=== PATIENT | female | born 1955 | race African-American/Black ===

== ENCOUNTER 2016-11-05 18:10 | Emergency (ER) | payer OTHER ==
[~2016-11-05] VITALS: Ht 170.2 cm; Wt 98.9 kg
[~2016-11-05 18:10] MED LIST: AMLO10TA4 PO; ASPI-482 PO; CALC-104 PO; CARV25TA PO; CARV6.25 PO; CLON0.1T PO; HYDR25CA PO; ISOS30TA PO; LIPITOR80 MG PO; MECL25TA3 PO; MELO-150 PO; NITR0.4T SL; OMEP40CA5 PO; ONDA4TAB10 PO; TRAM50TA PO; VALS1TAB22 PO
--- NOTE | 2016-11-05 18:27 | PHYS DOC ---
General Chief Complaint: BACK PAIN OR INJURY Stated Complaint: BACK PAIN Time Seen by MD: 18:04 Source: patient Exam Limitations: no limitations Problems: History of Present Illness Initial Comments Patient is a pleasant 60-year-old female with a history of heart disease, hypertension and diabetes presents with lower back pain that began while rolling in bed 4 days ago. She describes the pain as crampy and achy on her right and left lower back with radiation to the lateral legs. There is no numbness and tingling, there is no bowel or bladder incontinence, there is no rectal anesthesia, she has no weakness in her lower extremity's. She denies any prior trauma, night sweats weight loss is unintentional. She denies any urinary symptoms to include hematuria, dysuria urgency or frequency. She denies any fevers or travels outside of the country. The pain will improve with Motrin and rest. It is worsened by certain positions bending over or twisting. Timing/Duration: getting worse, other (4 days ago) Severity/Quality: severe Location: lumbar spine Radiation: buttocks Method of Injury: twisted Modifying Factors: worse with jarring, worse with movement, improves with pain medication Associated Symptoms: muscle spasms Allergies: Coded Allergies: Sulfa (Sulfonamide Antibiotics) (Verified Allergy, Severe, Hives, 04/21/15 ) alcohol (Verified Allergy, Intermediate, 10/08/15) isopropyl alcohol fish derived (Unverified Allergy, Intermediate, rash, 06/21/14) iodine (Verified Allergy, Intermediate, 10/08/15) latex (Unverified Allergy, Intermediate, rash, 06/21/14) Past Medical History Medical History: diabetes, hypertension Surgical History: other (hysterectomy, cholecystectomy, appendectomy, tonsillectomy,) Family History Significant Family History: no pertinent family hx Social History Smoker: non-smoker Alcohol: none Drugs: none Review of Systems Constitutional: no symptoms reported EENTM: no symptoms reported Respiratory: no symptoms reported Cardiovascular: no symptoms reported Gastrointestinal: no symptoms reported Genitourinary: no symptoms reported Musculoskeletal: no symptoms reported Skin: no symptoms reported Psychiatric/Neurological: no symptoms reported All Other Systems: Reviewed and Negative Physical Exam General Appearance: moderate distress HEENT: PERRL/EOMI Neck: non-tender, full range of motion Cardiovascular/Respiratory: regular rate, rhythm, no M/R/G, normal peripheral pulses Gastrointestinal: normal bowel sounds Back: normal inspection, decreased range of motion, muscle spasm Extremities: no evidence of injury, normal range of motion, non-tender, no pedal edema, pelvis stable Neurologic/Psychiatric: no motor/sensory deficits, alert, normal mood/affect, oriented x 3 Skin: normal color, warm/dry Orders, Labs, Meds Patient with a history of an physical exam consistent with muscular skeletal lower back pain. She does have risk factors for AAA to include diabetes, hypertension and coronary artery disease. She is not presenting as cauda equina , or fracture, or UTI, or metastatic disease, or infections secondary to IV drug abuse.. Patient will have a UA completed to ensure that this is not a urinary source of infection if there is any rbc lood cells in the urine will consider kidney stone. She will also be given supportive medications and reevaluated. Neuro exam was unremarkable including normal strength +2 DTRs and lower external is bilaterally at the knees and hip flexion. Patient has normal sensation to light touch and appropriate; judgment is well. Patient feels markedly better times now 7:15 PM after medications were given IM we reviewed urinalysis as well as a fingerstick glucose which were all within normal limits. Patient is comfortable with follow-up with her primary care doctor. She was prescribed muscle relaxant Valium, Lortab for breakthrough pain and Motrin. She's been discharged with follow-up with her primary care doctor MC POOL MD Nov 05, 2016 18:27
[2016-11-05] MEDS ORDERED: IBUP200T43 PO (18:43)
[2016-11-05] MEDS ORDERED: DIAZ5TAB PO (18:43)
[2016-11-05] MEDS ORDERED: HYDR-2678 PO (18:43)
[2016-11-05] MEDS ORDERED: DIAZEPAM 10 MG/2 ML DISP.SYRIN. IM ONE (18:45)
[2016-11-05] MEDS ORDERED: KETOROLAC 60 MG/2 ML VIAL. IM ONE (18:45)
[2016-11-05] MEDS ORDERED: HYDROMORPHONE PF 1 MG/ML DISP.SYRIN. IM ONE (18:45)
[2016-11-05 19:07] LABS: COLOR,URINE YELLOW
[2016-11-05 19:08] LABS: BACTERIA,URINE 0 /HPF (0-FEW); BILIRUBIN,URINE NEG (NEG); CLARITY,URINE CLEAR; GLUCOSE,URINE NEG (NEG); NITRITE,URINE NEG (NEG); RBC,URINE 0 /HPF (0-2); SQUAMOUS EPITHELIAL CELL,UR FEW /LPF; UROBILINOGEN,URINE 0.2 mg/dL (0.2 mg/dL); WBC,URINE OCC /HPF (0-4)
[2016-11-05 19:33] VITALS: BP 151/70
== END 2016-11-05 19:21 | disposition home or self-care (01) ==
LOC: ER 18:10
DX: M54.5 Low back pain (principal); E11.9 Type 2 diabetes mellitus without complications; I10 Essential (primary) hypertension; Z88.2 Allergy status to sulfonamides; Z88.8 Allergy status to other drugs, medicaments and biological substances; Z91.041 Radiographic dye allergy status; Z91.040 Latex allergy status; Z91.013 Allergy to seafood
CPT/HCPCS: 81001; 82947; 96372; 99284; J1170; J1885

== ENCOUNTER → 2016-12-09 | Outpatient (CLI) | payer OTHER ==
[~2016-12-09] MED LIST changes: +DIAZ5TAB PO; +HYDR-2678 PO; +IBUP200T43 PO; -MELO-150 PO; +MELO15TA23 PO
[2016-12-09 13:32] LABS: ALBUMIN 3.5 g/dL (3.4-5.0); CALCIUM 8.8 mg/dL (8.5-10.1); CREATININE 0.6 mg/dL (0.6-1.0); GFR 124.2; POTASSIUM 3.7 mmol/L (3.5-5.1); TOTAL BILIRUBIN 0.4 mg/dL (0.2-1.0)
[2016-12-10 13:59] LABS: THYROID STIM HORMONE (TSH) 1.188 uIU/mL (0.358-3.740)
== END | disposition home or self-care (01) ==
LOC: LAB 12:48
PROVIDERS: ATTEND Nurse Practitioner
DX: E78.5 Hyperlipidemia, unspecified (principal)
CPT/HCPCS: 36415; 80053; 80061; 84443

== ENCOUNTER 2017-04-02 20:21 | Emergency (ER) | payer OTHER ==
[~2017-04-02] VITALS: Ht 162.6 cm; Wt 99.3 kg
[2017-04-02] MEDS ORDERED: DICL100G18 TP (21:30)
--- NOTE | 2017-04-02 21:30 | PHYS DOC ---
Past History Past Medical History: Alcoholism, GERD, High Cholesterol, Hypertension, TIA Past Surgical History: Appendectomy, Cholecystectomy, Hysterectomy, Tonsillectomy Alcohol Use: Sober Drug Use: None Adult General Chief Complaint Chief Complaint: ANKLE PROBLEM HPI HPI Patient is a 61 year old F who presents with dull R ankle pain over the past 2 days. She does not recall having an injury. Her pain is worse with palpation and movement. Her pain is improved with rest and positioning. Her pain is primarily over the right lateral ankle and not radiating. He has no other associated symptoms Review of Systems Review of Systems Constitutional: Denies fever or chills [] Eyes: Denies change in visual acuity, redness, or eye pain [] HENT: Denies nasal congestion or sore throat [] Respiratory: Denies cough or shortness of breath [] Cardiovascular: No additional information not addressed in HPI [] GI: Denies abdominal pain, nausea, vomiting, bloody stools or diarrhea [] : Denies dysuria or hematuria [] Musculoskeletal: Negative except history of present illness Integument: Denies rash or skin lesions [] Neurologic: Denies headache, focal weakness or sensory changes [] Endocrine: Denies polyuria or polydipsia [] Family History Family History Noncontributory Current Medications Current Medications Medications reviewed Allergies Allergies Allergies Coded Allergies Type Severity Reaction Last Updated Verified Sulfa (Sulfonamide Antibiotics) Allergy Severe Hives 04/21/15 Yes alcohol Allergy Intermediate 10/08/15 Yes fish derived Allergy Intermediate rash 06/21/14 No iodine Allergy Intermediate 10/08/15 Yes latex Allergy Intermediate rash 06/21/14 No Physical Exam Physical Exam Constitutional: Well developed, well nourished, no acute distress, non-toxic appearance. [] HENT: Normocephalic, atraumatic Eyes: EOMI, conjunctiva normal, no discharge. [] Neck: Normal range of motion, no tenderness, supple, no stridor. [] Cardiovascular:Heart rate regular rhythm, no murmur [] Lungs & Thorax: Bilateral breath sounds clear to auscultation [] Skin: Warm, dry, no erythema, no rash. [] Extremities: no cyanosis, no clubbing, ROM intact, no edema. [] Mild swelling over the right lateral malleolus with tenderness to palpation anterior and inferior to the lateral malleolus. Normal range of motion. Normal sensation and pulses. No other pain was noted. Neurologic: Alert and oriented X 3, normal motor function, normal sensory function, no focal deficits noted. [] Psychologic: Affect normal, judgement normal, mood normal. [] Current Patient Data Vital Signs Vital Signs Date Time Temp Pulse Resp B/P (MAP) Pulse Ox O2 Delivery O2 Flow Rate FiO2 04/02/17 20:38 98.1 73 18 97 Radiology/Procedures Radiology/Procedures Right ankle x-ray Impressions: No acute bony abnormalities Course & Med Decision Making Course & Med Decision Making Pertinent Labs and Imaging studies reviewed. (See chart for details) Dragon Disclaimer Dragon Disclaimer This chart was dictated in whole or in part using Voice Recognition software in a busy, high-work load, and often noisy Emergency Department environment. It may contain unintended and wholly unrecognized errors or omissions. Departure Departure: Impression: Primary Impression: Ankle sprain Disposition: HOME, SELF-CARE Condition: STABLE Referrals: JAI MITCHELL (PCP) Patient Instructions: Ankle Sprain Additional Instructions: Calista was seen in the emergency department for ankle pain. No emergency medical condition was found on history or physical exam. Her symptoms are most consistent with an ankle sprain. She did have a normal x-ray. She was advised to continue activity as tolerated. She was given a prescription for Voltaren gel and advised consider lidocaine patches for pain. She is advised follow-up with her primary care doctor in the next 7-10 days for further management. She is also advised to return the emergency room if she develops new or worsening symptoms. Scripts Diclofenac Sodium (VOLTAREN) 100 Gm Gel..gram. 1 GM TP QID, #100 GM 2 Refills Prov: RAMONA KASPER MD 04/02/17 Problem Qualifiers Primary Impression: Ankle sprain Encounter type: initial encounter Involved ligament of ankle: unspecified ligament Laterality: right Qualified Codes: S93.401A - Sprain of unspecified ligament of right ankle, initial encounter RAMONA KASPER MD Apr 02, 2017 21:30
--- NOTE | 2017-04-03 08:12 | RAD ---
Three-view right ankle radiographs 04/02/2017 Clinical history: Right ankle swelling and pain. AP, lateral and oblique digital radiographs of the right ankle were obtained. The right ankle mortise is intact. No fracture or dislocation is seen. Soft tissue swelling is seen adjacent to the lateral malleolus of the right ankle. Mild to moderate degenerative changes are seen involving the right ankle joint. Moderate enthesophyte formation is seen involving the posterior right calcaneus. Impression: Soft tissue swelling surrounds the lateral malleolus of the right ankle. No acute osseous abnormality is seen.
== END 2017-04-02 21:35 | disposition home or self-care (01) ==
LOC: ER 20:21
DX: S93.401A Sprain of unspecified ligament of right ankle, initial encounter (principal); K21.9 Gastro-esophageal reflux disease without esophagitis; I10 Essential (primary) hypertension; E78.00 Pure hypercholesterolemia, unspecified; F10.20 Alcohol dependence, uncomplicated; Z88.2 Allergy status to sulfonamides; Z88.8 Allergy status to other drugs, medicaments and biological substances; Z91.041 Radiographic dye allergy status; Z91.040 Latex allergy status; Z91.013 Allergy to seafood; X58.XXXA Exposure to other specified factors, initial encounter; Y93.89 Activity, other specified; Y99.8 Other external cause status; Y92.89 Other specified places as the place of occurrence of the external cause
CPT/HCPCS: 73610; 99284

== ENCOUNTER → 2018-04-22 | Outpatient (CLI) | payer OTHER ==
[2017-04-02 20:38] VITALS: BP 127/69
[~2018-04-22] MED LIST changes: +DICL100G18 TP; -IBUP200T43 PO; +IBUP200T44 PO
[2018-04-22 13:49] LABS: ALBUMIN 3.8 g/dL (3.4-5.0); ALBUMIN/GLOBULIN RATIO 1.2 (1.0-1.7); CREATININE 0.8 mg/dL (0.6-1.0); GFR 88.5; POTASSIUM 3.3 mmol/L (3.5-5.1); TOTAL BILIRUBIN 0.4 mg/dL (0.2-1.0); TOTAL PROTEIN 7.1 g/dL (6.4-8.2)
== END | disposition home or self-care (01) ==
LOC: LAB 12:56
PROVIDERS: ATTEND Nurse Practitioner
DX: E78.5 Hyperlipidemia, unspecified (principal); K21.9 Gastro-esophageal reflux disease without esophagitis; I10 Essential (primary) hypertension; E78.00 Pure hypercholesterolemia, unspecified; Z90.49 Acquired absence of other specified parts of digestive tract; Z90.710 Acquired absence of both cervix and uterus
CPT/HCPCS: 36415; 80053; 80061

== ENCOUNTER → 2021-05-07 | Outpatient (CLI) | payer BC, OTHER ==
[2017-04-02 20:38] VITALS: BP 127/69
[~2021-05-07] MED LIST changes: +MECL-75 PO; -MECL25TA3 PO; -NITR0.4T SL; +NITR0.4T24 SL; -OMEP40CA5 PO; +OMEP40CA7 PO; -VALS1TAB22 PO; +VALS1TAB23 PO
--- NOTE | 2021-05-07 13:08 | RAD ---
Digital bilateral screening mammogram with tomography dated 05/07/2021. INDICATION: 65 years of age asymptomatic female patient presents for screening mammography. . TECHNIQUE: Full field craniocaudal and mediolateral oblique images of both breasts were obtained usi ng digital technique with tomosynthesis and also analyzed with computer-aided detection software. . COMPARISON: 12/28/2014 .. BREAST COMPOSITION: Category B: There are scattered fibroglandular densities. FINDINGS: No suspicious mass or clustered microcalcification. No architectural distortion. The visualized axillae are unremarkable. IMPRESSION: Stable bilateral mammogram RECOMMENDATION: Annual screening mammography is recommended, unless clinically indicated sooner based on symptoms or change in physical exam. BIRADS 1: NEGATIVE This study was interpreted with the benefit of Computerized Aided Detection (CAD). Recommend screening exam in one year. Patient information is entered into the reminder system with a target due date for the next screening mammogram. Mammography is the most sensitive method for finding small breast cancers, but it does not detect the m all and is not a substitute for careful clinical examination. A negative mammogram does not negate a clinically suspicious finding and should not result in delay in biopsying a clinically suspicious a bnormality. "Our facility is accredited by the [employer] Mammography Program." Electronically signed by: Marc Matta MD (05/07/2021 1:06 PM) [id number]
== END ==
LOC: MAMMO 09:05
PROVIDERS: ATTEND Family Medicine
DX: Z12.31 Encounter for screening mammogram for malignant neoplasm of breast (principal)
CPT/HCPCS: 77063; 77067

== ENCOUNTER 2021-07-09 18:20 | Emergency (ER) | payer BC, OTHER ==
[~2021-07-09] VITALS: Ht 165.1 cm; Wt 112.0 kg
--- NOTE | 2021-07-09 19:21 | PHYS DOC ---
Past History Past Medical History: High Cholesterol, Hypertension Past Surgical History: Appendectomy, Cholecystectomy, Hysterectomy, Tonsillectomy Alcohol Use: None Drug Use: None Adult General Chief Complaint Chief Complaint: EYE PROBLEMS HPI HPI Patient is a 65-year-old female who presents with a chief complaint of right eye pain. States that just before coming to the emergency department she was on her computer and was rubbing her right eye and started to have pain just underneath her right eye, 5 out of 10, sharp in nature. Denies any recent travels, trauma, illnesses, fevers, headache, changes in vision, numbness/weakness/tingling, trouble sitting, standing or walking. Cannot identify any aggravating or alleviating factors. Review of Systems Review of Systems Review of systems otherwise unremarkable except noted in HPI Allergies Allergies Allergies Coded Allergies Type Severity Reaction Last Updated Verified Sulfa (Sulfonamide Antibiotics) Allergy Severe Hives 04/21/15 Yes alcohol Allergy Intermediate 10/08/15 Yes fish derived Allergy Intermediate rash 06/21/14 No iodine Allergy Intermediate 10/08/15 Yes latex Allergy Intermediate rash 06/21/14 No Physical Exam Physical Exam Constitutional: Well developed, well nourished, no acute distress, non-toxic appearance. [] HENT: Normocephalic, atraumatic, bilateral external ears normal, oropharynx moist, no oral exudates, nose normal. [] Eyes: PERRLA, EOMI, conjunctiva normal, no discharge. Patient's right eyelid has a small mole on the lateral right corner that was flipped inwards on itself. No changes in vision per patient and no visual field deficits. Right eye 20/200, left eye 20/50 in both eyes with glasses 20/50 Neck: Normal range of motion, no tenderness, supple, no stridor. [] Cardiovascular:Heart rate regular rhythm, no murmur [] Lungs & Thorax: Bilateral breath sounds clear to auscultation [] Neurologic: Alert and oriented X 3, normal motor function, normal sensory function, cranial nerves intact, able to sit, stand and walk without issue no focal deficits noted. [] Psychologic: Affect normal, judgement normal, mood normal. [] Current Patient Data Vital Signs Vital Signs Date Time Temp Pulse Resp B/P (MAP) Pulse Ox O2 Delivery O2 Flow Rate FiO2 07/09/21 18:54 97.9 90 18 139/82 (101) 99 Room Air EKG EKG [] Radiology/Procedures Radiology/Procedures [] Heart Score C/O Chest Pain: No Risk Factors: Risk Factors: DM, Current or recent (<one month) smoker, HTN, HLP, family history of CAD, obesity. Risk Scores: Risk Factors: DM, Current or recent (<one month) smoker, HTN, HLP, family history of CAD, obesity. Course & Med Decision Making Course & Med Decision Making Patient is a 65-year-old female who presents with pain underneath her right eye Vital signs not concerning. Physical exam noted above. Patient's right eyelid was flipped in on itself and was easily flipped outwards back to normal. Patient experienced immediate relief. Discussed findings with family. Advised to follow-up with primary care/diabetes education coordinator to discuss ED visit. Gave return precautions to the ED. Patient grateful, verbalized understanding and agreed with plan of discharge. [] Dragon Disclaimer Dragon Disclaimer This electronic medical record was generated, in whole or in part, using a voice recognition dictation system. Departure Departure: Impression: Primary Impression: Eye pain Disposition: HOME / SELF CARE / HOMELESS Condition: GOOD Referrals: JAI MITCHELL MD (PCP) Patient Instructions: Eye Injury-Brief Additional Instructions: Thank for coming into the emergency department tonight and allowing us to take care of you. Please read the attached information carefully to go over the things we discussed. Please take all your medicines as prescribed. Please follow-up with your primary care physician and eye doctor to update on ED visit. Please come back with new or concerning symptoms as we discussed. CRISTOPHER HARRISON MD Jul 09, 2021 19:21
[2021-07-09 19:30] VITALS: BP 136/78
== END 2021-07-09 19:32 | disposition home or self-care (01) ==
LOC: ER 18:20
DX: H57.11 Ocular pain, right eye (principal); E78.00 Pure hypercholesterolemia, unspecified; I10 Essential (primary) hypertension; Z88.2 Allergy status to sulfonamides; Z91.013 Allergy to seafood; Z91.040 Latex allergy status; Z88.8 Allergy status to other drugs, medicaments and biological substances
CPT/HCPCS: 99282

== ENCOUNTER 2021-08-22 08:41 | Emergency (ER) | payer OTHER ==
[~2021-08-22] VITALS: Ht 165.1 cm; Wt 112.0 kg
--- NOTE | 2021-08-22 09:11 | PHYS DOC ---
Past History Past Medical History: High Cholesterol, Hypertension Past Surgical History: Appendectomy, Cholecystectomy, Hysterectomy, Tonsillectomy, Other Additional Past Surgical Histo: Lasix, cataracts, hip surgery (infection in hip) Alcohol Use: None Drug Use: None General Adult EDM: Chief Complaint: BACK PAIN - NO INJURY HPI: HPI: 65-year-old female presents with left low back/flank pain. Patient states that the pain started suddenly yesterday around 2 PM while she was sitting down. She was not doing any kind of lifting or exertion. She cannot think of any reason she would have any injury. Denies falls or trauma. The pain is a moderate cramping sensation. It is always there but worse with movement. Patient denies dysuria or increased urinary frequency. She does wonder about a kidney infection. She has not had a kidney stone in the past. Denies fever or chills. Review of Systems: Review of Systems: Constitutional: Denies fever or chills Eyes: Denies change in visual acuity HENT: Denies nasal congestion or sore throat Respiratory: Denies cough or shortness of breath Cardiovascular: Denies chest pain or edema GI: Denies abdominal pain, nausea, vomiting, bloody stools or diarrhea : Denies dysuria Musculoskeletal: Left, lateral, low back pain Integument: Denies rash Neurologic: Denies headache, focal weakness or sensory changes Endocrine: Denies polyuria or polydipsia Lymphatic: Denies swollen glands Psychiatric: Denies depression or anxiety Allergies: Allergies: Allergies Coded Allergies Type Severity Reaction Last Updated Verified Sulfa (Sulfonamide Antibiotics) Allergy Severe Hives 04/21/15 Yes alcohol Allergy Intermediate 10/08/15 Yes fish derived Allergy Intermediate rash 06/21/14 No iodine Allergy Intermediate 10/08/15 Yes latex Allergy Intermediate rash 06/21/14 No Physical Exam: PE: Constitutional: Well developed, well nourished, morbidly obese, no acute distress, non-toxic appearance. [] HENT: Normocephalic, atraumatic, bilateral external ears normal, oropharynx moist, no oral exudates, nose normal. [] Eyes: PERRLA, EOMI, conjunctiva normal, no discharge. [] Neck: Normal range of motion, no tenderness, supple, no stridor. [] Cardiovascular: Heart rate regular rhythm, no murmur [] Lungs & Thorax: Bilateral breath sounds clear to auscultation [] Abdomen: Bowel sounds normal, soft, no tenderness, no masses, no pulsatile masses. [] Skin: Warm, dry, no erythema, no rash. [] Back: Left lower tenderness, mild left-sided CVA tenderness. [] Extremities: No tenderness, no cyanosis, no clubbing, ROM intact, no edema. [] Neurologic: Alert and oriented X 3, normal motor function, normal sensory function, no focal deficits noted. [] Psychologic: Affect normal, judgement normal, mood normal. [] Current Patient Data: Vital Signs: Vital Signs Date Time Temp Pulse Resp B/P (MAP) Pulse Ox O2 Delivery O2 Flow Rate FiO2 08/22/21 08:49 97.9 57 18 134/88 (103) 100 Room Air EKG: EKG: [] Radiology/Procedures: Radiology/Procedures: [] Impressions: EXAM: Abdomen and pelvis CT without intravenous contrast. HISTORY: Left flank pain. TECHNIQUE: Computed tomographic images of the abdomen and pelvis were obtained without contrast. Multiplanar reformatting was performed. *One or more of the following individualized dose reduction techniques were utilized for this examination: 1. Automated exposure control. 2. Adjustment of the mA and/or kV according to patient size. 3. Use of iterative reconstruction technique. COMPARISON: 320 90,016. FINDINGS: Evaluation of the lower thorax demonstrates mild cardiomegaly. There is right middle lobe atelectasis or scarring. There is a patulous distal esophagus. No hepatic lesion is seen. The gallbladder is surgically absent. There is a 2.4 cm suspected cystic lesion within the pancreatic tail. There is a punctate calcification in this location. The spleen is normal in size. The adrenal glands are unremarkable. There is superior left renal cortical scarring with possible superimposed small simple cyst. There is no nephrolithiasis or hydronephrosis. The bladder is e mpty. There is no appendicitis. There is colonic diverticulosis. There is no evidence of diverticulitis. The aorta is normal in caliber. There is no lymphadenopathy. There is no acute or suspicious osseous finding. There are degenerative changes throughout the mid lower lumbar spine., IMPRESSION: 1. No evidence of nephrolithiasis or hydronephrosis. 2. Colonic diverticulosis. There is no evidence of diverticulitis. 3. 2.4 cm cystic lesion within the pancreatic tail with adjacent punctate calcification, the latter of which is best seen on coronal images. This is new compared to the prior study. The differential includes a cystic neoplasm as well as pseudocyst. This can be better assessed with MRI/MRCP. 4. Superior right renal cortical scarring and possible small associated simple cyst. Electronically signed by: Julianne Pelayo MD (08/22/2021 9:37 AM) [id number] DICTATED AND SIGNED BY: JULIANNE PELAYO MD DATE: 08/22/21930 CC: FELISA DAMON DO; JAI MITCHELL MD ~MTH0 0 Heart Score: C/O Chest Pain: N/A Risk Factors: Risk Factors: DM, Current or recent (<one month) smoker, HTN, HLP, family history of CAD, obesity. Risk Scores: Score 0 - 3: 2.5% MACE over next 6 weeks - Discharge Home Score 4 - 6: 20.3% MACE over next 6 weeks - Admit for Clinical Observation Score 7 - 10: 72.7% MACE over next 6 weeks - Early Invasive Strategies Course & Med Decision Making: Course & Med Decision Making Pertinent Labs and Imaging studies reviewed. (See chart for details) The patient's urinalysis is negative for blood or infection. Her CT scan is unremarkable for acute findings. There are some incidental findings. I have made the patient aware of these and recommended that she follow-up with her primary physician. Her pain seems most likely to be a muscular strain. I have advised 600 mg of ibuprofen 3 times a day as well as Flexeril muscle relaxer. She is stable for discharge at this time. [] Mayo Disclaimer: Mayo Disclaimer: This electronic medical record was generated, in whole or in part, using a voice recognition dictation system. Departure Departure: Impression: Primary Impression: Lower back pain Disposition: HOME / SELF CARE / HOMELESS Condition: STABLE Referrals: JAI MITCHELL MD (PCP) Patient Instructions: Low Back Strain with Rehab-[facility] Scripts Cyclobenzaprine Hcl (CYCLOBENZAPRINE HCL) 10 Mg Tablet 1 TAB PO TID PRN for MUSCLE SPASMS, #30 TAB Prov: FELISA DAMON DO 08/22/21 FELISA DAMON DO Aug 22, 2021 09:11
--- NOTE | 2021-08-22 09:39 | RAD ---
EXAM: Abdomen and pelvis CT without intravenous contrast. HISTORY: Left flank pain. TECHNIQUE: Computed tomographic images of the abdomen and pelvis were obtained without contrast. Mult iplanar reformatting was performed. *One or more of the following individualized dose reduction techniques were utilized for this examina tion: 1. Automated exposure control. 2. Adjustment of the mA and/or kV according to patient size. 3. Use of iterative reconstruction technique. COMPARISON: 320 90,016. FINDINGS: Evaluation of the lower thorax demonstrates mild cardiomegaly. There is right middle lobe a telectasis or scarring. There is a patulous distal esophagus. No hepatic lesion is seen. The gallblad tommy is surgically absent. There is a 2.4 cm suspected cystic lesion within the pancreatic tail. There is a punctate calcification in this location. The spleen is normal in size. The adrenal glands are u nremarkable. There is superior left renal cortical scarring with possible superimposed small simple cyst. There is no nephrolithiasis or hydronephrosis. The bladder is empty. There is no appendicitis. There is colonic diverticulosis. There is no evidence of diverticulitis. The aorta is normal in calib er. There is no lymphadenopathy. There is no acute or suspicious osseous finding. There are degenerat sal changes throughout the mid lower lumbar spine., IMPRESSION: 1. No evidence of nephrolithiasis or hydronephrosis. 2. Colonic diverticulosis. There is no evidence of diverticulitis. 3. 2.4 cm cystic lesion within the pancreatic tail with adjacent punctate calcification, the latter o f which is best seen on coronal images. This is new compared to the prior study. The differential inc ludes a cystic neoplasm as well as pseudocyst. This can be better assessed with MRI/MRCP. 4. Superior right renal cortical scarring and possible small associated simple cyst. Electronically signed by: Julianne Pelayo MD (08/22/2021 9:37 AM) [id number]
[2021-08-22 10:33] LABS: BILIRUBIN,URINE NEG (NEG); CLARITY,URINE HAZY; COLOR,URINE YELLOW; GLUCOSE,URINE NEG (NEG); NITRITE,URINE NEG (NEG); UROBILINOGEN,URINE 0.2 mg/dL (0.2 mg/dL)
[2021-08-22 10:34] LABS: BACTERIA,URINE FEW /HPF (0-FEW); RBC,URINE 0 /HPF (0-2); SQUAMOUS EPITHELIAL CELL,UR FEW /LPF
[2021-08-22] MEDS ORDERED: CYCL10TA19 PO (10:43)
[2021-08-22 11:04] VITALS: BP 128/70
== END 2021-08-22 11:05 | disposition home or self-care (01) ==
LOC: ER 08:41
DX: M54.59 Other low back pain (principal); E78.00 Pure hypercholesterolemia, unspecified; I10 Essential (primary) hypertension; Z90.89 Acquired absence of other organs; Z90.49 Acquired absence of other specified parts of digestive tract; Z90.710 Acquired absence of both cervix and uterus; Z88.2 Allergy status to sulfonamides; Z91.013 Allergy to seafood; Z91.040 Latex allergy status; Z88.8 Allergy status to other drugs, medicaments and biological substances
CPT/HCPCS: 74176; 81001; 87086; 99284